=== PATIENT | male | born 1960 | race Caucasian/White ===

== ENCOUNTER 2018-06-17 09:55 | Day surgery (SDC) | payer BC ==
[~2018-06-17 09:55] MED LIST: Lactated Ringers 1,000 ML IV SCH; Propofol 200 MG/20 ML SDV ONE; Sodium Chloride 0.9% 10 ML Syringe FLUSH PRN
[2018-06-17] MEDS ORDERED: Propofol 200 MG/20 ML SDV ONE ×2 (11:18→11:44)
[2018-06-17] MEDS ORDERED: Midazolam 1 MG/ML 2 ML SDV ONE ×2 (11:18→11:44)
[2018-06-17] MEDS ORDERED: fentaNYL 100 MCG/2 ML SDV ONE ×2 (11:18→11:44)
--- NOTE | 2018-06-17 11:18 | PCM.HPR ---
H & P Addendum review - H & P Addendum Review Date of Original H & P: 05/25/18 Date Reviewed: 06/17/18 Time Reviewed: 11:18 Patient was Examined: No Changes
[2018-06-17] MEDS ORDERED: Lidocaine 2% 5 ML SDV ONE (11:44)
--- NOTE | 2018-06-17 11:52 | PCM.OPNOTE ---
- General Post-Op/Procedure Note Date of Surgery/Procedure: 06/17/18 Operative Procedure(s): EGD with Bx. Colonoscopy Pre Op Diagnosis: GERD; Colon Screening Post-Op Diagnosis: Same Anesthesia Technique: MAC Primary Surgeon: Darren Garcia Anesthesia Provider: Amanda Adamson Complications: None Condition: Good
--- NOTE | 2018-06-17 13:23 | OR ---
Date of Procedure: 06/17/2018 PREOPERATIVE DIAGNOSES: 1. Gastroesophageal reflux disease. 2. Colon screening. POSTOPERATIVE DIAGNOSES: 1. Gastroesophageal reflux disease. 2. Sigmoid diverticulosis. PROCEDURES: 1. EGD with biopsy. 2. Colonoscopy. ANESTHESIA: IV sedation. DESCRIPTION OF PROCEDURE: The patient was brought to the procedure room, where he was placed on his left side and IV sedation administered. Oral bite block was placed and the upper endoscope advanced into the esophagus under direct vision without difficulty. The vocal cords were viewed and were normal. Scope was advanced to the third portion of the duodenum. Duodenum and pylorus were normal. Antrum and body of the stomach were normal. Retroflexion revealed a normal-appearing fundus. There was no hiatal hernia. Squamocolumnar junction appears regular without any strictures or inflammation. 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 I did 4 random biopsies from this area. Air was removed from the stomach and the scope withdrawn through the remaining esophagus, which appeared normal. The patient tolerated this portion of the procedure well. Next, colonoscopy was performed after digital rectal exam was performed, which was normal. Colonoscope was inserted and advanced to the level of the cecum without difficulty. Cecal position was confirmed by identifying the appendiceal lumen and ileocecal valve. Prep was good and surfaces were well visualized. Upon withdrawing the scope, the ascending, transverse, and descending colon were normal in appearance. Sigmoid colon had a few small diverticula present. Rectum was normal and retroflexion was normal. Air was removed and the scope was withdrawn. The patient tolerated the procedure well and returned to recovery in stable condition. I will have the patient follow up with KIMBERLY Eckert, next week for review of Pathology report. I recommend that he remain on his antacid medication. If Lundy esophagus is present, he should undergo a repeat upper endoscopy in 3 years. He should also consider routine colon screening again in 10 years. FRANDY ANTONIO MD /[id number]
== END 2018-06-17 13:25 | disposition home or self-care (01) ==
LOC: LL.SDS 09:55
PROVIDERS: ATTEND Surgery
DX: Z12.11 Encounter for screening for malignant neoplasm of colon (principal); K57.30 Diverticulosis of large intestine without perforation or abscess without bleeding; K21.0 Gastro-esophageal reflux disease with esophagitis; I10 Essential (primary) hypertension; E66.9 Obesity, unspecified
CPT/HCPCS: J2250; J2704; J3010; J7120

== ENCOUNTER 2020-08-13 19:29 | Emergency (ER) | payer BC ==
[2020-08-13 19:37] VITALS: PULSE 111
[2020-08-13] MEDS ORDERED: Lidocaine 2% Viscous Solution 15 ML Cup PO ONE (20:01)
--- NOTE | 2020-08-13 20:18 | EDM.PDOC ---
ED HPI GENERAL MEDICAL PROBLEM - General Chief Complaint: ENT Problem Stated Complaint: FOOD STUCK IN THROAT Time Seen by Provider: 08/13/20 19:45 Source of Information: Reports: Patient, Family (), Old Records ([facility] EMR. No paper hospital chart available.) History Limitations: Reports: No Limitations - History of Present Illness INITIAL COMMENTS - FREE TEXT/NARRATIVE: Patient was brought to the emergency room via private automobile by his for evaluation of persistent dysphagia secondary to a large piece of pork being caught in the GE junction secondary to patient eating quickly and not chewing properly at his break at work at 11 AM this morning. Since that time he has not had any other solid intake and has had difficulty swallowing fluids. He has not been able to successfully remove the piece of meat by self-induced emesis and drinking water with no improvement. Patient does have a episode of recurrent dysphagia and partial distal esophageal obstructions at least 1215 times over the last several years. He did have an initial EGD initially in 2006 with foreign body removal required at that time but no known history of esophageal dilatation. Note recent EGD and colonoscopy in June 2018 as below. No recent history of abdominal pain, heartburn, nausea, diarrhea, melena, gross hematochezia, or any food intolerance, including fatty foods, etc.. The patient also denies any recent fever, cough, wheezing, dyspnea, history of aspiration, etc.. He complains of 6/10 lower esophageal discomfort secondary to the foreign body as above. Onset: Today, Sudden Onset Date: 08/13/20 Onset Time: 11:00 Duration: Constant Location: Reports: Head, Face, Neck, Chest, Abdomen (Lower esophageal as above). Denies: Back, Upper Extremity, Left, Upper Extremity, Right, Radiates to Quality: Reports: Ache, Same as Previous Episode Severity: Moderate Improves with: Reports: None Worsens with: Reports: None Context: Reports: Other (As above). 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: Other (see below) (None) Lower Throat Pain Score (Numeric/FACES): 6 - Related Data Allergies Allergy/AdvReac Type Severity Reaction Status Date / Time No Known Allergies Allergy Verified 08/13/20 19:30 Home Meds: Home Meds Aspirin 325 mg PO DAILY 06/17/18 [History] Cholecalciferol (Vitamin D3) [Vitamin D3] 5,000 unit PO DAILY 06/17/18 [History] Fenofibrate 200 mg PO DAILY 06/17/18 [History] Furosemide 1 tab PO DAILY 06/17/18 [History] Lisinopril 1 tab PO DAILY 06/17/18 [History] Nebivolol [Bystolic] 1 tab PO QAM 06/17/18 [History] Omeprazole 40 mg PO DAILY 06/17/18 [History] Simvastatin 20 mg PO DAILY 06/17/18 [History] Past Medical History HEENT History: Reports: Impaired Vision, Other (See Below). Denies: Allergic Rhinitis, Epistaxis, Glaucoma, Hard of Hearing, Macular Degeneration, Retinal Detachment Other HEENT History: Patient wears glasses. Cardiovascular History: Reports: High Cholesterol, Hypertension, Other (See Below). Denies: Afib, Aneurysm, Arrhythmia, Blood Clots/VTE/DVT, CAD, Cardiomyopathy, Heart Failure, Heart Murmur, OR, PVD, Syncope Other Cardiovascular History: Varicose veins. Dyslipidemia. Respiratory History: Reports: None. Denies: Asthma, Bronchitis, Recurrent (Collapse sleep apnea), COPD (Previous surgeries), Intubation, Previous, PE, Pneumonia, Recurrent, Pneumothorax, Sleep Apnea, TB Gastrointestinal History: Reports: GERD, Other (See Below). Denies: Bowel Obstruction, Cholelithiasis, Chronic Constipation, Chronic Diarrhea, Colon Polyp, Fecal Incontinence, Gastritis, Inflammatory Bowel Disease, Irritable Bowel Syndrome, PUD Other Gastrointestinal History: GERD with reflux esophagitis and borderline Lundy's esophagitis. History of gastric ulcer versus gastric erosion at age 21 with no significant upper GI bleed. Sigmoid diverticulosis by colonoscopy in 2019. Genitourinary History: Reports: None. Denies: Acute Renal Failure, BPH, Chronic Renal Insuffiency, Renal Calculus, Retention, Urinary, STD, Urinary Incontinence, UTI, Recurrent Musculoskeletal History: Reports: Arthritis, Back Pain, Chronic, Osteoarthritis, Other (See Below). Denies: Amputation, Fracture, Gout, Neck Pain, Chronic, RA, SLE Other Musculoskeletal History: Distal phalangeal fracture of digit #2 of the right hand at about 10 years of age. Neurological History: Reports: None. Denies: Cerebral Aneurysms, Concussion, CVA, Headaches, Chronic, Head Trauma, Migraines, MS, Neuropathy, Peripheral, Parkinson's, Seizure, TIA Psychiatric History: Reports: None. Denies: Abuse, Victim of, ADD, ADHD, Addiction, Anxiety, Depression, Psych Hospitalization(s), PTSD, Suicide Attempt, Suicidal Ideation Endocrine/Metabolic History: Reports: None, Obesity/BMI 30+. Denies: Diabetes, Type I, Diabetes, Type II, Diabetes Mellitus, Type 3c, Hypothyroidism, IDDM Hematologic History: Reports: None. Denies: Anemia, Blood Transfusion(s), Iron Deficiency Immunologic History: Reports: None. Denies: AIDS, HIV, SLE Oncologic (Cancer) History: Reports: None. Denies: Basal Cell Carcinoma, Colon, Hodgkin's Lymphoma, Leukemia, Lymphoma, Malignant Melanoma, Non-Hodgkin's Lymphoma, Prostate, Squamous Cell Carcinoma Dermatologic History: Reports: None. Denies: Eczema, Psoriasis - Infectious Disease History Infectious Disease History: Reports: None. Denies: C-Difficile, Chicken Pox, Helicobacter Pylori, Measles, Meningitis, Mononucleosis, MRSA, Multidrug- Resistant Gram-Negative, Other, Mumps, Novel Coronavirus, Pertussis (Whooping Cough), Rheumatic Fever, Rubella, Scarlet Fever, Shingles, TB, VRE - Past Surgical History Head Surgeries/Procedures: Reports: None HEENT Surgical History: Reports: Oral Surgery, Other (See Below). Denies: Adenoidectomy, Cataract Surgery, Eye Surgery, Laser Surgery, LASIK, Myringotomy w Tube(s), Naso-Sinus Surgery, Tonsillectomy Other HEENT Surgeries/Procedures: Complete teeth extraction with complete dentures uppers and lowers. Cardiovascular Surgical History: Reports: None. Denies: Varicose Respiratory Surgical History: Denies: Thoracentesis GI Surgical History: Reports: Colonoscopy, EGD, Other (See Below). Denies: Appendectomy, Cholecystectomy, Esophageal Dilatation, Hernia, Abdominal, Hernia, Inguinal, Hernia Repair/Other, Polypectomy Other GI Surgeries/Procedures: EGD with biopsy and colonoscopy on 06/17/2018. Previous EGD about 2006. No known previous esophageal dilatations. Male Surgical History: Reports: Circumcision, Vasectomy, Other (See Below). Denies: TURP-Transurethral Resection of Prostate Other Male Surgeries/Procedures: Circumcision as an infant. Vasectomy in about 1990. Endocrine Surgical History: Reports: None. Denies: Thyroid Biopsy Neurological Surgical History: Reports: None. Denies: C-Spine, Discectomy, Laminectomy, Lumbar Spine, Sacral Spine, Spinal Fusion, Thoracic Spine, Vertebroplasty Musculoskeletal Surgical History: Reports: None. Denies: Arthroscopic Procedure, Carpal Tunnel, Ganglion Cyst, Joint Replacement, ORIF, Shoulder Surgery Oncologic Surgical History: Reports: None Dermatological Surgical History: Reports: None Social & Family History - Tobacco Use Tobacco Use Status *Q: Never Tobacco User Tobacco Use Within Last Twelve Months: No Used Tobacco, but Quit: No Smoking Cessation Information Provided To Patient: No Second Hand Smoke Exposure: No Second Hand Smoke Education Provided: No - Caffeine Use Caffeine Use: Reports: Coffee (1 cup every 2 days), Soda (1 soda 2 times per week), Tea (1 glass 2 times per week) - Alcohol Use Alcohol Use History: Yes Days Per Week of Alcohol Use: 0 Number of Drinks Per Day: 1 Number of Drinks Per Day Comment: Usually once per month. No previous DWIs, problems with alcohol abuse, etc. Total Drinks Per Week: 0 - Recreational Drug Use Recreational Drug Use: No Drug Use in Last 12 Months: No Recreational Drug Type: Denies: Amphetamines (Speed), Cocaine, Heroin, LSD (Acid), Marijuana/Hashish, Methamphetamine, Morphine, Oxycodone - Living Situation & Occupation Living situation: Reports: (1979, 4 children), with Family () Occupation: Employed ([employer]) ED ROS GENERAL - Review of Systems Review Of Systems: Comprehensive ROS is negative, except as noted in HPI. ED EXAM, GI/ABD - Physical Exam Exam: See Below Exam Limited By: No Limitations General Appearance: Alert, WD/WN, No Apparent Distress Throat/Mouth: Normal Inspection, Normal Lips, Normal Gums, Normal Oropharynx, Normal Voice, No Airway Compromise. No: Normal Teeth (Complete dentures uppers and lowers), Dysphagia, Inflammation, Perioral Cyanosis Head: Atraumatic, Normocephalic. No: Facial Swelling, Facial Tenderness, Sinus Tenderness Neck: Normal Inspection, Supple, Non-Tender, Full Range of Motion. No: Lymphadenopathy (L), Lymphadenopathy (R), Thyromegaly Respiratory/Chest: No Respiratory Distress, Lungs Clear, Normal Breath Sounds, No Accessory Muscle Use, Chest Non-Tender. No: Pleural Rub, Retractions Cardiovascular: Normal Peripheral Pulses, Regular Rate, Rhythm, No Gallop, No JVD, No Murmur, No Rub. No: No Edema (Dependent edema as below), Tachycardia (Resolved at time of exam), Gallop/S3, Gallop/S4, Friction Rub GI/Abdominal Exam: Normal Bowel Sounds, Soft, Non-Tender, No Organomegaly, No Distention, No Abnormal Bruit, No Mass, Pelvis Stable, Other (Obese). No: Guarding (Male) Exam: Deferred Rectal (Males) Exam: Deferred Back Exam: Normal Inspection, Full Range of Motion. No: CVA Tenderness (L), CVA Tenderness (R), Muscle Spasm Extremities: Normal Range of Motion, Non-Tender, Normal Capillary Refill, Pedal Edema (Trace bilateral pedal/pretibial edema). No: Sabrina's Sign Neurological: Alert, Oriented, CN II-XII Intact, Normal Cognition, Normal Gait, No Motor/Sensory Deficits Psychiatric: Normal Affect, Normal Mood Skin Exam: Warm, Dry, Intact, Normal Color, No Rash. No: Diaphoretic, Wound/Incision Lymphatic: No Adenopathy Course - Vital Signs Last Recorded V/S: Last Vital Signs Temp 35.9 C L 08/13/20 19:36 Pulse 111 H 08/13/20 19:36 Resp 12 08/13/20 19:36 BP 141/93 H 08/13/20 20:52 Pulse Ox 96 08/13/20 19:36 Vital Signs - 24 hr 08/13/20 08/13/20 19:36 20:52 Temperature [ 35.9 C L Temporal] Pulse, 111 H Peripheral [ Right Pulse Oximetry] Respiratory 12 Rate Blood Pressure 134/96 H 141/93 H [Right Upper Arm] O2 Sat by Pulse 96 Oximetry - Orders/Labs/Meds Orders: Active Orders 24 hr Category Date Time Status Peripheral IV Care [RC] . DIRECTED Care 08/13/20 20:19 Active Sodium Chloride 0.9% [Saline Flush] Med 08/13/20 20:19 Active 10 ml FLUSH ASDIRECTED PRN Obtain Past Medical Record [OM.PC] Routine Oth 08/13/20 20:02 Active Peripheral IV Insertion Adult [OM.PC] Routine Oth 08/13/20 20:19 Ordered Medication Orders Sodium Chloride (Saline Flush) 10 ml FLUSH ASDIRECTED PRN PRN Reason: Keep Vein Open Last Admin: 08/13/20 20:43 Dose: 10 ml Documented by: [email or web address] Admin: 08/13/20 20:35 Dose: 10 ml Documented by: [id number] Labs: None Meds: Medications Generic Name Dose Route Start Last Admin Trade Name Freq PRN Reason Stop Dose Admin Sodium Chloride 10 ml 08/13/20 20:19 08/13/20 20:43 Saline Flush FLUSH 10 ml ASDIRECTED PRN Administration Keep Vein Open Discontinued Medications Generic Name Dose Route Start Last Admin Trade Name Freq PRN Reason Stop Dose Admin Al Hydroxide/Mg Hydroxide 30 ml 08/13/20 20:20 08/13/20 20:35 Gi Cocktail PO 08/13/20 20:21 30 ml ONETIME ONE Administration Famotidine 40 mg 08/13/20 20:19 08/13/20 20:34 Pepcid IVPUSH 08/13/20 20:20 40 mg ONETIME ONE Administration Glucagon 1 mg 08/13/20 20:19 08/13/20 20:34 Glucagen IVPUSH 08/13/20 20:20 1 mg ONETIME ONE Administration Lidocaine HCl 15 ml 08/13/20 20:01 08/13/20 20:34 Xylocaine 2% Viscous PO 08/13/20 20:02 15 ml ONETIME ONE Administration Pantoprazole Sodium 40 mg 08/13/20 20:19 08/13/20 20:34 Protonix Iv IVPUSH 08/13/20 20:20 40 mg ONETIME ONE Administration - Radiology Interpretation Free Text/Narrative:: None Departure - Departure Time of Disposition: 21:55 Disposition: DC/Tfer to Acute Hospital 02 Condition: Good Clinical Impression: Dysphagia, Peptic reflux disease, Hypertension, Dyslipidemia - Discharge Information *PRESCRIPTION DRUG MONITORING PROGRAM REVIEWED*: Not Applicable *COPY OF PRESCRIPTION DRUG MONITORING REPORT IN PATIENT LEWIS: Not Applicable Referrals: PCP,None [Primary Care Provider] - Forms: ED Department Discharge, Interfacility Transfer EMTALA Additional Instructions: 1. Go to the emergency room at [facility] for ER evaluation and possible GI consultation 2. STRICT nothing to eat or drink until evaluated by [place] providers 3. If an upper scope procedure/EGD is not performed in [place] contact your regular provider [facility] for preop history and physical and recommended subsequent EGD with probable dilatation 4. Bring the blank [employer] work excuse form with you for the [place] physicians to complete 5. Immediately after this visit verify that your cellular telephone's voicemail has been activated and is empty. Also verify that your home telephone's answering machine is operating properly and has space to receive messages. Note that it is sometimes necessary for us to be able to contact you at a later date to discuss your medical care. 6. Please remember that we are ALWAYS here for you and want to answer any questions you may have. Feel free to call the hospital any time and we call you back HAJA. Sepsis Event Note (ED) - Evaluation Sepsis Screening Result: No Definite Risk - Focused Exam Vital Signs: Vital Signs Temp Pulse Resp BP Pulse Ox 08/13/20 20:52 141/93 H 08/13/20 19:36 35.9 C L 111 H 12 134/96 H 96 - Problem List & Annotations (1) Dysphagia SNOMED Code(s): 17586562, 248587499 Code(s): R13.10 - DYSPHAGIA, UNSPECIFIED Status: Chronic Priority: High Current Visit: Yes Annotation/Comment:: Telephone consultation at 9:[address] Rader, ER physician at [facility] in [place], who does accept the patient, with no further treatment recommendations given. Various therapeutic options were discussed with the patient and his with the patient agreeing to initial trial of mechanical removal of the food/foreign body in his distal esophagus/GE junction. By his history there was no possibility of any bone or other hard material in the piece of pork. A 37 Bulgarian gavage tube coated with 2% lidocaine gel was lightly advanced to the GE junction with minimal pressure x2 with 2 small pieces of meat able to be removed without complications. Moderate dysphagia, including with fluids did persist with the patient not wishing to have this procedure repeated. Additional attempt with IV glucagon and sublingual nitroglycerin tablet was also unsuccessful. High-dose IV Pepcid and IV Protonix were given as GI prophylaxis. The patient did not wish to try swallowing wet bread or drink fluids prior to transfer. Secondary to recurrent episodes of dysphagia as above and probable esophageal stenosis an EGD with probable lower esophageal dilatation is likely advisable. Note history of distant EGD in June 2018 with some borderline Lundy's esophagitis at that time. The patient was given a [employer] work excuse for his [place] physicians to complete. He was counseled extensively concerning the importance of eating slowly, chewing his food well, etc. Private automobile transfer with the patient's with saline lock left in place. Physical exam and vital signs are stable at time of patient discharge/transfer. Qualifiers: Dysphagia type: esophageal phase Qualified Code(s): R13.10 - Dysphagia, unspecified (2) Peptic reflux disease SNOMED Code(s): 184603680 Code(s): K21.9 - GASTRO-ESOPHAGEAL REFLUX DISEASE WITHOUT ESOPHAGITIS Status: Chronic Priority: Medium Current Visit: Yes Annotation/Comment:: As above. (3) Hypertension SNOMED Code(s): 79195697 Code(s): I10 - ESSENTIAL (PRIMARY) HYPERTENSION Status: Chronic Priority: Medium Current Visit: Yes Annotation/Comment:: Mildly elevated in the emergency room secondary to his discomfort. Continue to observe closely by his regular providers. Qualifiers: Hypertension type: essential hypertension Qualified Code(s): I10 - Essential (primary) hypertension (4) Dyslipidemia SNOMED Code(s): 370161691 Code(s): E78.5 - HYPERLIPIDEMIA, UNSPECIFIED Status: Chronic Priority: Medium Current Visit: Yes Annotation/Comment:: Currently under therapy. Weight loss moderation is advisable. - Problem List Review Problem List Initiated/Reviewed/Updated: Yes - My Orders Last 24 Hours: My Active Orders 08/13/20 20:02 Obtain Past Medical Record [OM.PC] Routine 08/13/20 20:19 Peripheral IV Care [RC] . DIRECTED Sodium Chloride 0.9% [Saline Flush] 10 ml FLUSH ASDIRECTED PRN Peripheral IV Insertion Adult [OM.] Routine - Assessment/Plan Last 24 Hours: My Active Orders 08/13/20 20:02 Obtain Past Medical Record [OM.PC] Routine 08/13/20 20:19 Peripheral IV Care [RC] . DIRECTED Sodium Chloride 0.9% [Saline Flush] 10 ml FLUSH ASDIRECTED PRN Peripheral IV Insertion Adult [OM.PC] Routine
[2020-08-13] MEDS ORDERED: Glucagon,Human Recombinant 1 MG Vial IVPUSH ONE (20:19)
[2020-08-13] MEDS ORDERED: Famotidine 20 MG/2 ML SDV IVPUSH ONE (20:19)
[2020-08-13] MEDS ORDERED: Pantoprazole 40 MG Vial IVPUSH ONE (20:19)
[2020-08-13] MEDS ORDERED: GI Cocktail Oral Solution 30 ML PO ONE (20:20)
[2020-08-13] MEDS: Sodium Chloride 0.9% 10 ML Syringe FLUSH PRN ×2 (20:35→20:43)
[2020-08-13 20:53] VITALS: BP 141/93
== END 2020-08-13 21:50 ==
LOC: LL.ED 19:29
DX: R13.10 Dysphagia, unspecified (principal); K21.9 Gastro-esophageal reflux disease without esophagitis; I10 Essential (primary) hypertension; E78.5 Hyperlipidemia, unspecified; M19.90 Unspecified osteoarthritis, unspecified site; E66.9 Obesity, unspecified; Z68.35 Body mass index [BMI] 35.0-35.9, adult; Z79.82 Long term (current) use of aspirin; Z79.899 Other long term (current) drug therapy
CPT/HCPCS: 96374; 96375; 99283; A9270; C9113; J1610; J3490; 99284

== ENCOUNTER 2025-04-13 10:41 | Day surgery (SDC) | payer BC ==
[~2025-04-13 10:41] MED LIST changes: -Lactated Ringers 1,000 ML IV SCH; +Midazolam 1 MG/ML 2 ML SDV ONE
[2025-04-13] MEDS: Lactated Ringers 1,000 ML IV SCH (12:21)
== END 2025-04-13 13:36 | disposition home or self-care (01) ==
LOC: LL.SDS 10:41
PROVIDERS: ATTEND Surgery
DX: K22.70 Barrett's esophagus without dysplasia (principal); K22.2 Esophageal obstruction; K44.9 Diaphragmatic hernia without obstruction or gangrene; I10 Essential (primary) hypertension; E66.812 Obesity, class 2; Z68.41 Body mass index [BMI] 40.0-44.9, adult
CPT/HCPCS: J1596; J2250; J2704; J7120